=== PATIENT | female | born 1990 ===

== ENCOUNTER 2021-03-31 00:08 | Inpatient (IN) | payer OTHER ==
[2021-03-31] MEDS ORDERED: Misoprostol 25 MCG (1/4 of 100 MCG) Tab VAG PRN (00:31)
[2021-03-31] MEDS ORDERED: Terbutaline 1 MG/ML SDV SUBCUT PRN (00:31)
[2021-03-31] MEDS ORDERED: Sodium Chloride 0.9% 10 ML Syringe FLUSH PRN (00:31)
[2021-03-31] MEDS ORDERED: Misoprostol 200 MCG Tab PO PRN (00:31)
[2021-03-31] MEDS ORDERED: Water For Irrigation,Sterile 1,000 ML Container IRR PRN (00:31)
[2021-03-31] MEDS ORDERED: Butorphanol 1 MG/ML SDV IVPUSH PRN (00:31)
[2021-03-31] MEDS ORDERED: Methylergonovine 0.2 MG/1 ML Amp IM PRN (00:31)
[2021-03-31] MEDS ORDERED: Tranexamic Acid 1,000 MG in Sodium Chloride 0.9% 100 ML IV PRN (00:31)
[2021-03-31] MEDS ORDERED: Ondansetron 4 MG/2 ML SDV IVPUSH PRN (00:31)
[2021-03-31] MEDS ORDERED: Nalbuphine 10 MG/1 ML Vial IVPUSH PRN (00:31)
[2021-03-31] MEDS ORDERED: Sodium Chloride 0.9% 2.5 ML Syringe FLUSH PRN (00:31)
[2021-03-31] MEDS ORDERED: Carboprost Tromethamine 250 MCG/1 ML Amp IM PRN (00:31)
[2021-03-31] MEDS ORDERED: Sodium Chloride 0.9% 20 ML SDV IV PRN (00:31)
[2021-03-31] MEDS ORDERED: Lidocaine 1% 50 ML MDV INJECT PRN (00:31)
[2021-03-31] MEDS ORDERED: Oxytocin/0.9 % Sodium Chloride 30 UNIT/500 ML BAG IV SCH (00:45)
[2021-03-31] MEDS: Misoprostol 25 MCG (1/4 of 100 MCG) Tab VAG PRN ×3 (05:38→13:59)
--- NOTE | 2021-03-31 10:57 | PCM.PREANE ---
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 ) Cardiovascular: Other (Frequent PVC's. Pt states to seeing terminal press operator in 2012 who placed om medications yet withdrew medications due to hypotension. Has not seen terminal press operator since 2012. >4 mets) Gastrointestinal: Other (Obstetric Cholestasis with normal LFT) Neurological: No Symptoms Other: Reports: None - Physical Assessment NPO Status Date: 03/31/21 NPO Status Time: 10:00 Height: 1.7 m Weight: 94.801 kg ASA Class: 3 Mental Status: Alert & Oriented x3 Airway Class: Mallampati = 2 Dentition: Reports: Normal Dentition Thyro-Mental Finger Breadths: 3 Mouth Opening Finger Breadths: 3 ROM/Head Extension: Full Lungs: Clear to Auscultation, Normal Respiratory Effort Cardiovascular: Regular Rate, Regular Rhythm - Lab Values: Laboratory Last Values WBC 10.06 K/uL (4.0-11.0) 03/31/21 01:00 RBC 3.95 M/uL (4.30-5.90) L 03/31/21 01:00 Hgb 11.5 g/dL (12.0-16.0) L 03/31/21 01:00 Hct 34.7 % (36.0-46.0) L 03/31/21 01:00 MCV 87.8 fL (80.0-98.0) 03/31/21 01:00 MCH 29.1 pg (27.0-32.0) 03/31/21 01:00 MCHC 33.1 g/dL (31.0-37.0) 03/31/21 01:00 RDW Std Deviation 43.5 fl (28.0-62.0) 03/31/21 01:00 RDW Coeff of Jordan 14 % (11.0-15.0) 03/31/21 01:00 Plt Count 279 K/uL (150-400) 03/31/21 01:00 MPV 9.90 fL (7.40-12.00) 03/31/21 01:00 Neut % (Auto) 67.2 % (48.0-80.0) 03/31/21 01:00 Lymph % (Auto) 19.0 % (16.0-40.0) 03/31/21 01:00 Wilbarger % (Auto) 10.4 % (0.0-15.0) 03/31/21 01:00 Eos % (Auto) 3.1 % (0.0-7.0) 03/31/21 01:00 Baso % (Auto) 0.3 % (0.0-1.5) 03/31/21 01:00 Neut # (Auto) 6.8 K/uL (1.4-5.7) H 03/31/21 01:00 Lymph # (Auto) 1.9 K/uL (0.6-2.4) 03/31/21 01:00 Wilbarger # (Auto) 1.1 K/uL (0.0-0.8) H 03/31/21 01:00 Eos # (Auto) 0.3 K/uL (0.0-0.7) 03/31/21 01:00 Baso # (Auto) 0.0 K/uL (0.0-0.1) 03/31/21 01:00 SARS-CoV-2 RNA (GUILLERMINA) NEGATIVE (NEGATIVE) 03/31/21 01:05 Blood Type A POSITIVE 03/31/21 01:00 Antibody Screen NEGATIVE 03/31/21 01:00 - Allergies Allergies/Adverse Reactions: Allergies Allergy/AdvReac Type Severity Reaction Status Date / Time amoxicillin Allergy Severe Anaphylactic Verified 03/31/21 00:38 Shock Penicillins Allergy Severe Anaphylactic Verified 03/31/21 00:38 Shock erythromycin base Allergy Mild Rash Verified 03/31/21 00:38 Sulfa (Sulfonamide Allergy Mild Rash Verified 03/31/21 00:38 Antibiotics) - Blood Blood Available: Yes Product(s) Available: PRBC (Type and screen) - Anesthesia Plan Pre-Op Medication Ordered: None - Acknowledgements Anesthesia Type Planned: General Anesthesia, Spinal, Epidural Pt an Appropriate Candidate for the Planned Anesthesia: Yes Alternatives and Risks of Anesthesia Discussed w Pt/Guardian: Yes Pt/Guardian Understands and Agrees with Anesthesia Plan: Yes Additional Comments: Patients states to being active with no Chest Pain of SOB. 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: - Infectious Disease History Infectious Disease History: Reports: Chicken Pox - Past Surgical History Cardiovascular Surgical History: Reports: None GI Surgical History: Reports: Cholecystectomy Female Surgical History: Reports: LEEP - SUBSTANCE USE Tobacco Use Status *Q: Never Tobacco User Tobacco Use Within Last Twelve Months: No Recreational Drug Use History: No - HOME MEDS Home Medications: Home Meds Acetaminophen [Tylenol Extra Strength] 1 tab PO Q6H PRN 03/31/21 [History] Pnv 67/Iron Ps/Folate No.1/Dha [Vitafol Ultra Softgel] 1 tab PO DAILY 03/31/21 [History] ursodioL [Actigal] 1 cap PO TID 03/31/21 [History] - CURRENT (IN HOUSE) MEDS Current Meds: Current Medications Butorphanol Tartrate (Butorphanol 1 Mg/Ml Sdv) 1 mg IVPUSH Q1H PRN PRN Reason: Pain (severe 7-10) Carboprost Tromethamine (Carboprost Tromethamine 250 Mcg/1 Ml Amp) 250 mcg IM ASDIRECTED PRN PRN Reason: Post Hemorrhage Oxytocin/Sodium Chloride (Oxytocin 30 Unit In Ns 0.9% 500 Ml Premix) 30 unit in 500 mls @ 500 mls/hr IV TITRATE ESHA Tranexamic Acid 1,000 mg/ (Sodium Chloride) 110 mls @ 660 mls/hr IV ONETIME PRN PRN Reason: Bleeding Oxytocin/Sodium Chloride (Oxytocin 30 Unit In Ns 0.9% 500 Ml Premix) 30 unit in 500 mls @ 2 mls/hr IV TITRATE ESHA; Protocol Lactated Ringer's (Ringers, Lactated) 1,000 mls @ 150 mls/hr IV ASDIRECTED ESHA Lidocaine HCl (Lidocaine 1% 50 Ml Mdv) 50 ml INJECT ONETIME PRN PRN Reason: Laceration repair Methylergonovine Maleate (Methylergonovine 0.2 Mg/1 Ml Amp) 0.2 mg IM ASDIRE CTED PRN PRN Reason: Post Hemorrhage Misoprostol (Misoprostol 200 Mcg Tab) 200 mcg PO ONETIME PRN PRN Reason: Post Hemorrhage Misoprostol (Misoprostol 25 Mcg (1/4 Of 100 Mcg) Tab) 25 mcg VAG ONETIME PRN PRN Reason: Cervical Ripening Last Admin: 03/31/21 01:31 Dose: 25 mcg Documented by: Misoprostol (Misoprostol 25 Mcg (1/4 Of 100 Mcg) Tab) 25 mcg VAG Q4H PRN PRN Reason: Cervical Ripening Last Admin: 03/31/21 09:38 Dose: 25 mcg Documented by: Nalbuphine HCl (Nalbuphine 10 Mg/1 Ml Vial) 10 mg IVPUSH Q1H PRN PRN Reason: Pain (severe 7-10) Ondansetron HCl (Ondansetron 4 Mg/2 Ml Sdv) 4 mg IVPUSH Q4H PRN PRN Reason: Nausea/Vomiting Sodium Chloride (Sodium Chloride 0.9% 10 Ml Syringe) 10 ml FLUSH ASDIRECTED PRN PRN Reason: Keep Vein Open Sodium Chloride (Sodium Chloride 0.9% 2.5 Ml Syringe) 2.5 ml FLUSH ASDIRECTED PRN PRN Reason: Keep Vein Open Sodium Chloride (Sodium Chloride 0.9% 20 Ml Sdv) 10 ml IV ASDIRECTED PRN PRN Reason: IV Use Sterile Water (Water For Irrigation,Sterile 1,000 Ml Container) 1,000 ml IRR ASDIRECTED PRN PRN Reason: delivery Terbutaline Sulfate (Terbutaline 1 Mg/Ml Sdv) 0.25 mg SUBCUT ASDIRECTED PRN PRN Reason: Tacysystole
[2021-03-31] MEDS: Lactated Ringers 1,000 ML IV SCH ×3 (18:00→23:16)
[2021-03-31] MEDS: Oxytocin/0.9 % Sodium Chloride 30 UNIT/500 ML BAG IV SCH (18:19)
[2021-03-31] MEDS ORDERED: Ropivacaine HCl/PF 200 ML ONE (19:19)
--- NOTE | 2021-03-31 19:41 | PCM.SN.2 ---
- Pre-Procedure Checklist Attending Provider Aware: Yes Chart Reviewed: Yes Consent Signed: Yes Labs Reviewed: Yes VS/FHR Reviewed: Yes Patient Identification Confirmation Method: Reports: Chart Visual, Verbal Patient Pt an Appropriate Candidate for the Planned Anesthesia: Yes Alternatives and Risks of Anesthesia Discussed w Pt/Guardian: Yes - Procedure Procedure Start Date: 03/31/21 Procedure Start Time: 18:[address]: Reports: Blood Pressure, Heart Rate, SPO2 Functional IV: Yes Safety Measures: Reports: Patient Identified, Procedure Verified, Site Verified, Procedure Time Out Patient Position: Reports: Sitting Prep: Reports: Betadine x3 Local Anesthetic: Reports: Intradermal Wheal w Lidocaine 1% (3 ml) Regional Placement Level: Reports: L3-4 Needle: Reports: 17 g Touhy Approach: Reports: Midline Technique: Reports: MARTY Glass Syringe MARTY Needle Depth (cm): 7 cm Parasthesia: Reports: None Fluid Obtained: Reports: None Catheter Depth at Skin (cm): 16 cm Test Dose Time: 19:13 Test Dose Medication: Reports: Lidocaine 1.5% w Epinephrine 1:200,000 (5 ml) Test Dose Response: Reports: Negative Loading Dose Time: 19:22 (8 ml) Loading Dose Medication: Ropivicaine 0.2% Loading Dose Patient Position: 8 Continuous Infusion Start Time: 19:23 Continuous Infusion Medication: Ropivicaine 0.2% Continuous Infusion Rate: 16 Continuous Infusion PCS Bolus Option: 6 Continuous Infusion Lockout Dose (cc/hr): 15 (Min Lockout) Patient Position Post Placement: Reports: Supline/TANISHA Post-procedure Pain Level: 0 Level Achieved: T4 VS and FHR Monitored in Unit Post Placement: Yes Procedure End Date: 03/31/21 Procedure End Time: 19:54 Procedure Comment: Sterile technique maintained throughout procedure
--- NOTE | 2021-03-31 19:41 | PCM.POSTAN ---
POST ANESTHESIA ASSESSMENT - MENTAL STATUS Mental Status: Alert, Oriented - RESPIRATORY Respiratory Status: Respiratory Rate WNL, Airway Patent, O2 Saturation Stable - CARDIOVASCULAR CV Status: Pulse Rate WNL, Blood Pressure Stable - GASTROINTESTINAL GI Status: No Symptoms - POST OP HYDRATION Hydration Status: Adequate & Stable
[2021-03-31] MEDS ORDERED: Ropivacaine/PF 400 MG/200 ML PCA EPIDUR SCH (19:45)
[2021-04-01] MEDS ORDERED: hydrOXYzine HCl 25 MG Tab PO STA (01:07)
[2021-04-01] MEDS: Oxytocin/0.9 % Sodium Chloride 30 UNIT/500 ML BAG IV SCH (05:42)
[2021-04-01] MEDS: Lactated Ringers 1,000 ML IV SCH ×3 (05:53→14:36)
[2021-04-01] MEDS: ePHEDrine 50 MG/ML SDV IVPUSH PRN ×2 (06:47→06:56)
[2021-04-01] MEDS ORDERED: Ropivacaine HCl/PF 200 ML ONE (09:16)
[2021-04-01] MEDS ORDERED: Acetaminophen 500 MG Tab PO ONE (09:30)
[2021-04-01] MEDS ORDERED: Lidocaine 2% with EPINEPHrine 1:200,000 20 ML SDV ONE (11:55)
[2021-04-01] MEDS ORDERED: Morphine PF 10 MG/10 ML SDV ONE (11:55)
--- NOTE | 2021-04-01 11:55 | PCM.DEL ---
L & D Note - General Info Date of Service: 04/01/21 Mother's Due Date: 04/17/21 - Delivery Note Labor: Augmented by Oxytocin Cervical Ripening Method: Misoprostil Delivery Outcome: Livebirth Delivery Method: Spontaneous Vaginal Delivery-Single Presentation: Left Occiput Anterior (VAISHALI) Nuchal Cord: None Anesthesia Type: Epidural Amniotic Fluid Description: Bloody Episiotomy Type: None Laceration: 2nd Degree Suture type: Vicryl Suture size: 2-0 Placenta: Intact, Spontaneous Cord: 3 Vessels Estimated Blood Loss: 500 Provider: Wilian Lockhart Score 1 min: 7 Score 5 min: 9 Post Delivery Events: Other (see below) (cervical laceration) Delivery Comments (Free Text/Narrative):: Uneventful spontaneous vaginal delivery. Cord blood gases were obtained after umbilical cord was clamped and cut. Placenta expressed intake, 3-vessel cord noted. Inspection of the vaginal cardoza and perineum performed and a small 2nd degree perineal laceration noted. Laceration repaired in the usual fashion. Uterine fundus noted to be firm and below the umbilicus. Persistent vaginal oozing noted, examination of the cervix was performed and cervical laceration noted at the 9 o'clock position. Recommended moving to the OR for better visualization and repair of the cervical laceration. Risks of the procedure reviewed including in infection, bleeding with need for blood transfusion/hysterectomy, injury to surrounding structures with need for additional procedures and remote risk of . Questions elicited and answered. See additional documentation for operative note. Dictation #[id number] - General Info Date of Service: 04/01/21 - Patient Data Weight - Most Recent: 209 lb I&O - Last 24 Hours: Intake & Output 03/31/21 04/01/21 04/01/21 22:59 06:59 14:59 Intake Total 1000 2000 Output Total 2200 Balance 1000 -200 Med Orders - Current: Current Medications Butorphanol Tartrate (Butorphanol 1 Mg/Ml Sdv) 1 mg IVPUSH Q1H PRN PRN Reason: Pain (severe 7-10) Carboprost Tromethamine (Carboprost Tromethamine 250 Mcg/1 Ml Amp) 250 mcg IM ASDIRECTED PRN PRN Reason: Post Hemorrhage Ephedrine Sulfate (Ephedrine 50 Mg/Ml Sdv) 10 mg IVPUSH Q1M PRN PRN Reason: Hypotension Last Admin: 04/01/21 06:56 Dose: 10 mg Documented by: Oxytocin/Sodium Chloride (Oxytocin 30 Unit In Ns 0.9% 500 Ml Premix) 30 unit in 500 mls @ 500 mls/hr IV TITRATE ESHA Tranexamic Acid 1,000 mg/ (Sodium Chloride) 110 mls @ 660 mls/hr IV ONETIME PRN PRN Reason: Bleeding Oxytocin/Sodium Chloride (Oxytocin 30 Unit In Ns 0.9% 500 Ml Premix) 30 unit in 500 mls @ 2 mls/hr IV TITRATE ESHA; Protocol Last Titration: 04/01/21 10:01 Dose: 8 munits/min, 8 mls/hr Documented by: Lactated Ringer's (Ringers, Lactated) 1,000 mls @ 150 mls/hr IV ASDIRECTED ESHA Last Infusion: 04/01/21 07:03 Dose: 150 mls/hr Documented by: Lidocaine HCl (Lidocaine 1% 50 Ml Mdv) 50 ml INJECT ONETIME PRN PRN Reason: Laceration repair Methylergonovine Maleate (Methylergonovine 0.2 Mg/1 Ml Amp) 0.2 mg IM ASDIRECTED PRN PRN Reason: Post Hemorrhage Miscellaneous Medication (Phenylephrine Hcl In 0.9% Nacl 1 Mg/10 Ml Syringe) 0.1 mg IVPUSH Q1M PRN PRN Reason: Hypotension Misoprostol (Misoprostol 200 Mcg Tab) 200 mcg PO ONETIME PRN PRN Reason: Post Hemorrhage Misoprostol (Misoprostol 25 Mcg (1/4 Of 100 Mcg) Tab) 25 mcg VAG ONETIME PRN PRN Reason: Cervical Ripening Last Admin: 03/31/21 01:31 Dose: 25 mcg Documented by: Misoprostol (Misoprostol 25 Mcg (1/4 Of 100 Mcg) Tab) 25 mcg VAG Q4H PRN PRN Reason: Cervical Ripening Last Admin: 03/31/21 13:59 Dose: 25 mcg Documented by: Nalbuphine HCl (Nalbuphine 10 Mg/1 Ml Vial) 10 mg IVPUSH Q1H PRN PRN Reason: Pain (severe 7-10) Ondansetron HCl (Ondansetron 4 Mg/2 Ml Sdv) 4 mg IVPUSH Q4H PRN PRN Reason: Nausea/Vomiting Ropivacaine (Ropivacaine/Pf 400 Mg/200 Ml Export Documents Clerk) 400 mg EPIDUR ASDIRECTED ESHA Last Admin: 04/01/21 09:19 Dose: 400 mg Documented by: Sodium Chloride (Sodium Chloride 0.9% 10 Ml Syringe) 10 ml FLUSH ASDIRECTED PRN PRN Reason: Keep Vein Open Sodium Chloride (Sodium Chloride 0.9% 2.5 Ml Syringe) 2.5 ml FLUSH ASDIRECTED PRN PRN Reason: Keep Vein Open Sodium Chloride (Sodium Chloride 0.9% 20 Ml Sdv) 10 ml IV ASDIRECTED PRN PRN Reason: IV Use Sterile Water (Water For Irrigation,Sterile 1,000 Ml Container) 1,000 ml IRR ASDIRECTED PRN PRN Reason: delivery Terbutaline Sulfate (Terbutaline 1 Mg/Ml Sdv) 0.25 mg SUBCUT ASDIRECTED PRN PRN Reason: Tacysystole Discontinued Medications Acetaminophen (Acetaminophen 500 Mg Tab) 1,000 mg PO ONETIME ONE Stop: 04/01/21 09:31 Last Admin: 04/01/21 09:50 Dose: 1,000 mg Documented by: Hydroxyzine HCl (Hydroxyzine Hcl 25 Mg Tab) 50 mg PO Q6H STA Stop: 04/01/21 01:08 Last Admin: 04/01/21 01:45 Dose: Not Given Documented by: Ropivacaine (Naropin 0.2%) Confirm Administered Dose 200 mls @ as directed .ROUTE .STK-MED ONE Stop: 03/31/21 19:20 Last Admin: 04/01/21 02:39 Dose: Not Given Documented by: Ropivacaine (Naropin 0.2%) Confirm Administered Dose 200 mls @ as directed .ROUTE .STK-MED ONE Stop: 04/01/21 09:17 - Problem List Review Problem List Initiated/Reviewed/Updated: Yes - My Orders Last 24 Hours: My Active Orders 04/01/21 04:08 Communication Order [RC] ROUTINE 04/01/21 11:45 BLOOD BANK HOLD SPECIMEN [BBK] Stat CBC W/O DIFF,HEMOGRAM [HEME] Routine FIBRINOGEN [COAG] Routine INR,PT,PROTHROMBIN TIME [COAG] Routine PTT,PARTIAL THROMBOPLSTIN TIME [COAG] Routine
[2021-04-01] MEDS ORDERED: Clindamycin Phosphate in D5W 900 MG in Premix Bag 1 BAG IV ONE ×2 (12:02)
[2021-04-01] MEDS ORDERED: oxyCODONE 5 MG Tab PO PRN (13:34)
[2021-04-01] MEDS ORDERED: Acetaminophen 500 MG Tab PO PRN (13:34)
[2021-04-01] MEDS ORDERED: Witch Hazel Medicated Pads 40/Jar TOP PRN (13:34)
[2021-04-01] MEDS ORDERED: Benzocaine/Menthol 20%-0.5% Spray 78 GM Cannister TOP PRN (13:34)
[2021-04-01] MEDS ORDERED: Lanolin 100% Cream 7 GM Tube TOP PRN (13:34)
[2021-04-01] MEDS ORDERED: Ibuprofen 400 MG Tab PO PRN (13:34)
[2021-04-01] MEDS ORDERED: Docusate Sodium 100 MG Cap PO PRN (13:34)
[2021-04-01] MEDS ORDERED: Bisacodyl 10 MG Supp RECTAL PRN (13:34)
[2021-04-01] MEDS ORDERED: Famotidine 20 MG/2 ML SDV IVPUSH ONE (13:38)
--- NOTE | 2021-04-01 13:40 | PCM.OPNOTE ---
- General Post-Op/Procedure Note Date of Surgery/Procedure: 04/01/21 Operative Procedure(s): Cervical laceration repair Findings: cervix dilated to 10cm. Bilateral cervical lacerations noted at 3 o'clock and 9 o'clock. Repaired 2nd degree perineal laceration. Pre Op Diagnosis: 1. cervical laceration. 2. History of LEEP. 3. hemorrhage Post-Op Diagnosis: 1. cervical laceration. 2. History of LEEP. 3. hemorrhage Anesthesia Technique: Epidural Primary Surgeon: Kenia Nair Anesthesia Provider: Elliot Childress Pathology: None Fluid Replacement, Intraop: 800 Output, Urine Amount: 400 (clear urine at end of procedure) EBL in mLs: 500 (1100cc total following spontaneous vaginal delivery) Complications: hemorrhage due to bilateral cervical laceration Condition: Good Free Text/Narrative:: Intake & Output 03/31/21 04/01/21 04/01/21 22:59 06:59 14:59 Intake Total 1000 2000 1500 Output Total 2200 Balance 1000 -200 1500 Dictation #[id number]
--- NOTE | 2021-04-01 13:56 | PCM48HPAN ---
Post Anesthesia Note - EVALUATION WITHIN 48HRS OF ANESTHETIC Vital Signs in Normal Range: Yes Patient Participated in Evaluation: Yes Respiratory Function Stable: Yes Airway Patent: Yes Cardiovascular Function Stable: Yes Hydration Status Stable: Yes Pain Control Satisfactory: Yes Nausea and Vomiting Control Satisfactory: Yes Mental Status Recovered: Yes - COMMENTS/OBSERVATIONS Free Text/Narrative:: Catheter removed with tip intact
[2021-04-01] MEDS ORDERED: diphenhydrAMINE 50 MG/ML SDV IVPUSH ONE ×2 (16:13→17:38)
--- NOTE | 2021-04-01 22:13 | OR ---
SURGEON: TITUS NAIR MD DATE OF PROCEDURE: 04/01/2021 PREOPERATIVE DIAGNOSES: 1. cervical laceration. 2. History of LEEP procedure. 3. hemorrhage. POSTOPERATIVE DIAGNOSES: 1. cervical laceration. 2. History of LEEP procedure. 3. hemorrhage. PROCEDURE PERFORMED: Cervical laceration repair. PRIMARY SURGEON: Titus Nair MD RETAIL CLIENT SOLUTIONS CONSULTANT: None. ANESTHESIA: Epidural. COMPLICATIONS: hemorrhage due to bilateral cervical laceration. ESTIMATED BLOOD LOSS: 500 mL during the procedure. Total of 1100 mL blood loss following spontaneous vaginal delivery. IV FLUIDS: 100 mL of crystalloid. URINE OUTPUT: 400 mL of clear urine at the end of the procedure. FINDINGS: cervix dilated to 10 cm. Bilateral cervical lacerations noted at 3 o'clock and 9 o'clock repaired. Repaired second-degree perineal laceration. PATHOLOGY: None. INDICATIONS FOR PROCEDURE: Patient is a 30-year-old, 3, para 2 female, who initially presented to Labor and Delivery for induction of labor at 37 weeks 5 days due to cholestasis. The patient has a history of a LEEP procedure with cervical scarring noted. The patient delivered by spontaneous vaginal delivery at 10:51 on 04/01/2021. After the delivery, inspection of the perineum was then performed. A small second- degree perineal laceration was noted and repaired with 2-0 Vicryl in the usual fashion. Inspection of the cervix was attempted due to continued vaginal bleeding despite firm uterine fundus. However, due to limited visualization within the delivery room and continued vaginal bleeding, concern for cervical laceration was noted. The vagina was then packed and the patient was then taken to the operating room. Prior to arrival in the operating room, the patient had a 2nd IV site started and a bleeding panel was obtained along with 2 units of blood typed and crossed. DESCRIPTION OF PROCEDURE: Once the patient arrived to the operating room, she was then prepped and draped in the dorsal lithotomy position. After adequate anesthesia was noted per her epidural, a weighted speculum was then inserted into the vagina along with 2 right angle retractors. Findings noted as above. The anterior-posterior cervix was then grasped with ring forceps near the 9 o'clock position and the 9 o'clock laceration was repaired in a running locked fashion with 2-0 Vicryl. Due to edematous cervical tissue, continued bleeding was noted, and 2-0 chromic was used to achieve hemostasis. Additional procedure was carried out at the 3 o'clock position; using 2-0 chromic to reapproximate the tissue in a running locked fashion. Inspection was then again performed and oozing noted just proximal to the opening of the cervix on the posterior side. A figure-of- eight suture of 2-0 chromic was used to achieve hemostasis. Similar oozing was noted on the anterior side at similar location. Again, 2-0 chromic was used to place a [id number] suture to achieve hemostasis. Inspection of the cervix and vaginal cardoza was then again performed. Bleeding was scant. Uterine fundus remained firm during the procedure. All instruments were then removed from the vagina. Sponge, lap, and needle count were correct x2. Patient received prophylactic antibiotics prior to the procedure. She was taken back to room for recovery in stable condition. LALITHA JOHNSON /[id number] JONELLE
--- NOTE | 2021-04-01 22:17 | PCM.SN.2 ---
- Free Text/Narrative Note: Called by patients nurse to examine due to complaints of leg numbness. During assessment, patient states that her legs had been "pushed to her chest" during labor. Additionally, patient had subsequent cervical suture in OR in which stirrups had been used. Patient states that her numbness is on the lateral aspect of her right lower leg and plantar foot with tingling sensation on the dorsal aspect of her foot. During assessment she is able to have full ROM with leg and ankle. She is able to bear wait on her right leg but states that the numbness on the plantar aspect of the foot does cause her concern for walking. Patients left leg is unaffected. Dr. Nair notified of these findings and it was requested that she consult neurology regarding common peroneal or sciatic nerve injury. Dr. Nair stated she would ascertain when neurologist was available and consider consultation for review and assessment with treatment. Patient was instructed to alert nurse to the need for immediate assessment should pain develop, numbness worsen, or leg weakness.
--- NOTE | 2021-04-01 22:19 | OR ---
SURGEON: KENIA NAIR MD DATE OF PROCEDURE: 04/01/2021 PREOPERATIVE DIAGNOSES: 1. Term intrauterine gestation at 37 weeks 5 days. 2. Cholestasis of . 3. History of loop electrosurgical excision procedure. POSTOPERATIVE DIAGNOSES: 1. Term intrauterine gestation at 37 weeks 5 days. 2. Cholestasis of . 3. History of loop electrosurgical excision procedure. PROCEDURES PERFORMED: 1. Normal spontaneous vaginal delivery. 2. Repair of second-degree perineal laceration. PRIMARY SURGEON: Kenia Nair MD. ANESTHESIOLOGIST: Elliot Childress CRNA. ANESTHESIA: Epidural. FINDINGS: Viable male , score of 7 and 9, weight of 8 pounds 4 ounces. Second- degree perineal laceration. hemorrhage due to cervical laceration. ESTIMATED BLOOD LOSS: At the time of delivery, 500 mL. INDICATION FOR PROCEDURE: The patient is a 30-year-old, 3, para 2, who presented to Labor and Delivery in the television station manager of 03/31/2021, at 37 weeks 4 days for induction of labor due to cholestasis of . Her has been also complicated by history of LEEP procedure. She received 4 doses of vaginal Cytotec with minimal cervical change. She received an epidural and Pitocin for continued induction of labor. In the television station manager of 04/01/2021, cervical exam was performed and effacement had been noted of the cervix; however, scar tissue noted with fingertip dilation of the cervix. The scar tissue was gently disrupted and the cervix then proceeded to dilate to 5 cm. Labor progressed spontaneously and artificial rupture of membranes was performed with small amount of blood-tinged fluid. At approximately 10:35, I was notified that the patient was completely dilated and feeling the urge to push. DESCRIPTION OF PROCEDURE: Upon my arrival to the room, the patient was placed into the dorsal lithotomy position. She pushed with contractions for approximately 10 minutes with good descent. head delivered in occiput anterior position, restitute LOT. Anterior shoulder delivered easily. No nuchal cord was noted. Posterior shoulder and remaining body were then delivered. The baby was then placed on the maternal abdomen, evaluated by the awaiting nursing staff. After approximately 2 minutes, the umbilical cord was no longer pulsating. The vocal cord was then clamped and cut. Arterial, venous, and cord blood gases were then obtained. Arterial gases with minimal output. The placenta then was expressed intact. Uterine fundus noted to be firm and below the umbilicus. Inspection of the perineum was then performed and a second-degree perineal laceration was noted, which was repaired in the usual fashion with 2-0 Vicryl. Continued oozing was noted from the vagina. Inspection was then performed of the vaginal cardoza and attempt to visualize the cervix; however, due to poor visualization in the delivery room and concern for cervical laceration due to history of LEEP procedure, the patient was then taken to the operating room for further evaluation under anesthesia and repair of cervical laceration. Please see additional note for description of cervical laceration repair. LALITHA / ALEX /[id number] MTDD
--- NOTE | 2021-04-02 08:25 | PCM.PNPP ---
- General Info Date of Service: 04/02/21 Admission Dx/Problem (Free Text): Subjective Update: Ambulating about room during rounds. Reports right lower extremity numbness has much improved, has a "pins and needles" sensation to the sole of her right foot, otherwise the numbness has resolved. Pain well controlled. Tolerating regular diet. Voiding independently. , going well per patient. Denies fever/chills, lightheadedness, dizziness or headaches. - General Info Date of Service: 04/02/21 - Patient Data Vital Signs - Most Recent: Last Vital Signs Temp 97.9 F 04/02/21 03:35 Pulse 89 04/02/21 03:35 Resp 18 04/02/21 03:35 BP 110/69 04/02/21 03:35 Pulse Ox 96 04/02/21 03:35 Weight - Most Recent: 209 lb I&O - Last 24 Hours: Intake & Output 04/01/21 04/02/21 04/02/21 22:59 06:59 14:59 Output Total 1700 Balance -1700 Lab Results - Last 24 Hours: Laboratory Results - last 24 hr 03/31/21 04/01/21 04/01/21 Range/Units 01:00 11:59 11:59 WBC 19.13 H (4.0-11.0) K/uL RBC 3.69 L (4.30-5.90) M/uL Hgb 10.8 L (12.0-16.0) g/dL Hct 32.2 L (36.0-46.0) % MCV 87.3 (80.0-98.0) fL MCH 29.3 (27.0-32.0) pg MCHC 33.5 (31.0-37.0) g/dL RDW Std Deviation 45.6 (28.0-62.0) fl RDW Coeff of [place] 14 (11.0-15.0) % Plt Count 261 (150-400) K/uL MPV 10.00 (7.40-12.00) fL Nucleated RBC % 0.0 /100WBC Nucleated RBCs # 0 K/uL INR 1.00 APTT 25.0 (18.6-31.3) SEC Fibrinogen 370 (215-411) mg/dL Blood Type A POSITIVE Antibody Screen NEGATIVE Crossmatch See Detail 04/01/21 04/02/21 Range/Units 20:06 05:40 WBC (4.0-11.0) K/uL RBC (4.30-5.90) M/uL Hgb 10.0 L 9.2 L (12.0-16.0) g/dL Hct 30.1 L 27.5 L (36.0-46.0) % MCV (80.0-98.0) fL MCH (27.0-32.0) pg MCHC (31.0-37.0) g/dL RDW Std Deviation (28.0-62.0) fl RDW Coeff of Jordan (11.0-15.0) % Plt Count (150-400) K/uL MPV (7.40-12.00) fL Nucleated RBC % /100WBC Nucleated RBCs # K/uL INR APTT (18.6-31.3) SEC Fibrinogen (215-411) mg/dL Blood Type Antibody Screen Crossmatch Med Orders - Current: Current Medications Acetaminophen (Acetaminophen 500 Mg Tab) 500 mg PO Q4H PRN PRN Reason: Pain (mild 1-3) Acetaminophen (Acetaminophen 500 Mg Tab) 1,000 mg PO Q4H PRN PRN Reason: Pain (mild 1-3) Benzocaine/Menthol (Benzocaine/Menthol 20%-0.5% [place] 78 Gm Cannister) 78 gm TOP ASDIRECTED PRN PRN Reason: Perineal Comfort Measure Last Admin: 04/01/21 16:46 Dose: 1 container Documented by: Bisacodyl (Bisacodyl 10 Mg Supp) 10 mg RECTAL ONETIME PRN PRN Reason: Constipation Butorphanol Tartrate (Butorphanol 1 Mg/Ml Sdv) 1 mg IVPUSH Q1H PRN PRN Reason: Pain (severe 7-10) Carboprost Tromethamine (Carboprost Tromethamine 250 Mcg/1 Ml Amp) 250 mcg IM ASDIRECTED PRN PRN Reason: Post Hemorrhage Docusate Sodium (Docusate Sodium 100 Mg Cap) 100 mg PO Q12H PRN PRN Reason: Constipation Last Admin: 04/01/21 21:07 Dose: 100 mg Documented by: Emollient Ointment (Lanolin 100% Cream 7 Gm Tube) 0 gm TOP ASDIRECTED PRN PRN Reason: Sore Nipples Last Admin: 04/01/21 16:47 Dose: 1 applic Documented by: Ephedrine Sulfate (Ephedrine 50 Mg/Ml Sdv) 10 mg IVPUSH Q1M PRN PRN Reason: Hypotension Last Admin: 04/01/21 06:56 Dose: 10 mg Documented by: Oxytocin/Sodium Chloride (Oxytocin 30 Unit In Ns 0.9% 500 Ml Premix) 30 unit in 500 mls @ 500 mls/hr IV TITRATE [facility] Last Admin: 04/01/21 11:21 Dose: 500 mls/hr Documented by: Tranexamic Acid 1,000 mg/ (Sodium Chloride) 110 mls @ 660 mls/hr IV ONETIME PRN PRN Reason: Bleeding Oxytocin/Sodium Chloride (Oxytocin 30 Unit In Ns 0.9% 500 Ml Premix) 30 unit in 500 mls @ 2 mls/hr IV TITRATE [facility]; Protocol Last Titration: 04/01/21 10:51 Dose: 999 munits/min, 999 mls/hr Documented by: Lactated Ringer's (Ringers, Lactated) 1,000 mls @ 150 mls/hr IV ASDIRECTED [facility] Last Admin: 04/01/21 14:36 Dose: 150 mls/hr Documented by: Ibuprofen (Ibuprofen 400 Mg Tab) 400 mg PO Q4H PRN PRN Reason: Pain (mild 1-3) Ibuprofen (Ibuprofen 800 Mg Tab) 800 mg PO Q6H PRN PRN Reason: Cramping Lidocaine HCl (Lidocaine 1% 50 Ml Mdv) 50 ml INJECT ONETIME PRN PRN Reason: Laceration repair Methylergonovine Maleate (Methylergonovine 0.2 Mg/1 Ml Amp) 0.2 mg IM ASDIRECTED PRN PRN Reason: Post Hemorrhage Miscellaneous Medication (Phenylephrine Hcl In 0.9% Nacl 1 Mg/10 Ml Syringe) 0.1 mg IVPUSH Q1M PRN PRN Reason: Hypotension Misoprostol (Misoprostol 200 Mcg Tab) 200 mcg PO ONETIME PRN PRN Reason: Post Hemorrhage Misoprostol (Misoprostol 25 Mcg (1/4 Of 100 Mcg) Tab) 25 mcg VAG ONETIME PRN PRN Reason: Cervical Ripening Last Admin: 03/31/21 01:31 Dose: 25 mcg Documented by: Misoprostol (Misoprostol 25 Mcg (1/4 Of 100 Mcg) Tab) 25 mcg VAG Q4H PRN PRN Reason: Cervical Ripening Last Admin: 03/31/21 13:59 Dose: 25 mcg Documented by: Nalbuphine HCl (Nalbuphine 10 Mg/1 Ml Vial) 10 mg IVPUSH Q1H PRN PRN Reason: Pain (severe 7-10) Ondansetron HCl (Ondansetron 4 Mg/2 Ml Sdv) 4 mg IVPUSH Q4H PRN PRN Reason: Nausea/Vomiting Last Admin: 04/01/21 16:42 Dose: 4 mg Documented by: Oxycodone HCl (Oxycodone 5 Mg Tab) 5 mg PO Q2H PRN PRN Reason: Pain (severe 7-10) Ropivacaine (Ropivacaine/Pf 400 Mg/200 Ml Die Sizer) 400 mg EPIDUR ASDIRECTED [facility] Last Admin: 04/01/21 09:19 Dose: 400 mg Documented by: Sodium Chloride (Sodium Chloride 0.9% 10 Ml Syringe) 10 ml FLUSH ASDIRECTED PRN PRN Reason: Keep Vein Open Sodium Chloride (Sodium Chloride 0.9% 2.5 Ml Syringe) 2.5 ml FLUSH ASDIRECTED PRN PRN Reason: Keep Vein Open Sodium Chloride (Sodium Chloride 0.9% 20 Ml Sdv) 10 ml IV ASDIRECTED PRN PRN Reason: IV Use Sterile Water (Water For Irrigation,Sterile 1,000 Ml Container) 1,000 ml IRR ASDIRECTED PRN PRN Reason: delivery Terbutaline Sulfate (Terbutaline 1 Mg/Ml Sdv) 0.25 mg SUBCUT ASDIRECTED PRN PRN Reason: Tacysystole Witch Mary (Witch Mary Medicated Pads 40/Jar) 1 pad TOP ASDIRECTED PRN PRN Reason: comfort care Last Admin: 04/01/21 16:46 Dose: 1 container Documented by: Discontinued Medications Acetaminophen (Acetaminophen 500 Mg Tab) 1,000 mg PO ONETIME ONE Stop: 04/01/21 09:31 Last Admin: 04/01/21 09:50 Dose: 1,000 mg Documented by: Diphenhydramine HCl (Diphenhydramine 50 Mg/Ml Sdv) 12.5 mg IVPUSH ONETIME ONE Stop: 04/01/21 16:14 Last Admin: 04/01/21 16:44 Dose: 12.5 mg Documented by: Diphenhydramine HCl (Diphenhydramine 50 Mg/Ml Sdv) 12.5 mg IVPUSH ONETIME ONE Stop: 04/01/21 17:39 Last Admin: 04/01/21 18:08 Dose: 12.5 mg Documented by: Famotidine (Famotidine 20 Mg/2 Ml Sdv) 20 mg IVPUSH ONETIME ONE Stop: 04/01/21 13:39 Last Admin: 04/01/21 14:37 Dose: 20 mg Documented by: Hydroxyzine HCl (Hydroxyzine Hcl 25 Mg Tab) 50 mg PO Q6H STA Stop: 04/01/21 01:08 Last Admin: 04/01/21 01:45 Dose: Not Given Documented by: Ropivacaine (Naropin 0.2%) Confirm Administered Dose 200 mls @ as directed .ROUTE .STK-MED ONE Stop: 03/31/21 19:20 Last Admin: 04/01/21 02:39 Dose: Not Given Documented by: Ropivacaine (Naropin 0.2%) Confirm Administered Dose 200 mls @ as directed .ROUTE .STK-MED ONE Stop: 04/01/21 09:17 Clindamycin Phosphate 900 mg/ (Premix) 50 mls @ 100 mls/hr IV ONETIME ONE Stop: 04/01/21 12:31 Last Admin: 04/01/21 12:15 Dose: 100 mls/hr Documented by: Lidocaine/Epinephrine (Lidocaine 2% With Epinephrine 1:200,000 20 Ml Sdv) Confirm Administered Dose 20 ml .ROUTE .STK-MED ONE Stop: 04/01/21 11:56 Morphine Sulfate (Morphine Pf 10 Mg/10 Ml Sdv) Confirm Administered Dose 10 mg .ROUTE .STK-MED ONE Stop: 04/01/21 11:56 - Infant Interaction Infant Disposition, : [place] in Room with Family Interaction: Holding Feeding: Breastfed ; Nursed Well Support Person: - Recovery Exam Fundal Tone: Firm Fundal Level: 2 Fingerbreadths Below Umbilicus Fundal Placement: Midline Lochia Amount: Scant Lochia Color: Rubra/Red Perineum Description: Intact, Minimal Bruising/Swelling Other Perinuem Description: repaired first degree perineal laceration cervical laceration Episiotomy/Laceration: Approximated Bladder Status: Voiding Urinary Elimination: Voided - Exam General: Alert Lungs: Normal Respiratory Effort Cardiovascular: Regular Rate GI/Abdominal Exam: Soft, Non-Tender Extremities: Normal Inspection, Normal Range of Motion, Non-Tender, No Pedal Edema Skin: Warm, Dry, Intact Neurological: No New Focal Deficit Psy/Mental Status: Normal Mood - Problem List Review Problem List Initiated/Reviewed/Updated: Yes - My Orders Last 24 Hours: My Active Orders 04/01/21 11:45 BLOOD BANK HOLD SPECIMEN [BBK] Stat 04/01/21 11:48 RED BLOOD CELLS LP [BBK] Stat 04/01/21 13:34 Patient Status [ADT] Routine May Shower [RC] ASDIRECTED Up ad Jesi [RC] ASDIRECTED Vital Signs [RC] PER UNIT ROUTINE Acetaminophen [Tylenol Extra Strength] 1,000 mg PO Q4H PRN Acetaminophen [Tylenol Extra Strength] 500 mg PO Q4H PRN Benzocaine/Menthol [Dermoplast Pain Relief 20%-0.5% [place]] 78 gm TOP ASDIRECTED PRN Docusate Sodium [Colace] 100 mg PO Q12H PRN Ibuprofen [Motrin] 400 mg PO Q4H PRN Ibuprofen [Motrin] 800 mg PO Q6H PRN Lanolin [Lansinoh HPA] See Dose Instructions TOP ASDIRECTED PRN bisacodyL [Dulcolax] 10 mg RECTAL ONETIME PRN oxyCODONE 5 mg PO Q2H PRN witch Mary [Tucks] 1 pad TOP ASDIRECTED PRN Assess Lochia [WOMSER] Per Unit Routine Assess Uterine Involution [WOMSER] Per Unit Routine Peripheral IV Discontinue [OM.PC] Routine 04/02/21 08:19 HEPATITIS C ANTIBODY [CHEM] Urgent - Assessment Assessment:: 30 year old female PPD1 s/p with hemorrhage due to cervical laceration - Plan Plan:: Routine cares * Rh positive, rubella immune, GBS negative * Regular diet as tolerated * PO pain medications ordered PRN * Encourage ambulation and fluid intake * , nursing assistance PRN Anemia due to hemorrhage * Hgb 11.5 > 9.2 * Asymptomatic * Bleeding stable * PO iron ordered BID with meals Lower extremity numbness * Improved over the last 24 hours * Will consult on-call neurologist for further evaluation Dispo: stable. Anticipate discharge tomorrow pending maternal/infant status.
--- NOTE | 2021-04-02 13:44 | PCM.SN.2 ---
- Free Text/Narrative Note: Patient states that numbness of eight leg has resolved yet some numbness of foot remains. Patient states that Dr. Nair has discussed her case with neurologist and she may follow up as outpatient basis.
[2021-04-02] MEDS: Ferrous Sulfate 325 MG Tab PO SCH (18:03)
[2021-04-02] MEDS: Acetaminophen 500 MG Tab PO PRN (20:24)
[2021-04-03] MEDS: Ibuprofen 800 MG Tab PO PRN ×2 (03:08→09:05)
[2021-04-03] MEDS: Ferrous Sulfate 325 MG Tab PO SCH (08:04)
[2021-04-03] MEDS: Acetaminophen 500 MG Tab PO PRN (08:04)
--- NOTE | 2021-04-03 09:25 | PCM.PNPP ---
- General Info Date of Service: 04/03/21 Functional Status: Reports: Pain Controlled, Tolerating Diet, Ambulating, Urinating - Review of Systems General: Reports: No Symptoms HEENT: Reports: No Symptoms Pulmonary: Reports: No Symptoms Cardiovascular: Reports: No Symptoms Gastrointestinal: Reports: No Symptoms Genitourinary: Reports: No Symptoms Musculoskeletal: Reports: No Symptoms Skin: Reports: No Symptoms Neurological: Reports: No Symptoms Psychiatric: Reports: No Symptoms - Patient Data Vital Signs - Most Recent: Last Vital Signs Temp 36.8 C 04/03/21 08:00 Pulse 86 04/03/21 08:00 Resp 18 04/03/21 08:00 BP 115/63 04/03/21 08:00 Pulse Ox 96 04/03/21 08:00 Weight - Most Recent: 209 lb Med Orders - Current: Current Medications Acetaminophen (Acetaminophen 500 Mg Tab) 500 mg PO Q4H PRN PRN Reason: Pain (mild 1-3) Acetaminophen (Acetaminophen 500 Mg Tab) 1,000 mg PO Q4H PRN PRN Reason: Pain (mild 1-3) Last Admin: 04/03/21 08:04 Dose: 1,000 mg Documented by: Benzocaine/Menthol (Benzocaine/Menthol 20%-0.5% [place] 78 Gm Cannister) 78 gm TOP ASDIRECTED PRN PRN Reason: Perineal Comfort Measure Last Admin: 04/01/21 16:46 Dose: 1 container Documented by: Bisacodyl (Bisacodyl 10 Mg Supp) 10 mg RECTAL ONETIME PRN PRN Reason: Constipation Butorphanol Tartrate (Butorphanol 1 Mg/Ml Sdv) 1 mg IVPUSH Q1H PRN PRN Reason: Pain (severe 7-10) Carboprost Tromethamine (Carboprost Tromethamine 250 Mcg/1 Ml Amp) 250 mcg IM ASDIRECTED PRN PRN Reason: Post Hemorrhage Docusate Sodium (Docusate Sodium 100 Mg Cap) 100 mg PO Q12H PRN PRN Reason: Constipation Last Admin: 04/01/21 21:07 Dose: 100 mg Documented by: Emollient Ointment (Lanolin 100% Cream 7 Gm Tube) 0 gm TOP ASDIRECTED PRN PRN Reason: Sore Nipples Last Admin: 04/01/21 16:47 Dose: 1 applic Documented by: Ephedrine Sulfate (Ephedrine 50 Mg/Ml Sdv) 10 mg IVPUSH Q1M PRN PRN Reason: Hypotension Last Admin: 04/01/21 06:56 Dose: 10 mg Documented by: Ferrous Sulfate (Ferrous Sulfate 325 Mg Tab) 325 mg PO BIDMEALS [facility] Last Admin: 04/03/21 08:04 Dose: 325 mg Documented by: Oxytocin/Sodium Chloride (Oxytocin 30 Unit In Ns 0.9% 500 Ml Premix) 30 unit in 500 mls @ 500 mls/hr IV TITRATE [facility] Last Admin: 04/01/21 11:21 Dose: 500 mls/hr Documented by: Tranexamic Acid 1,000 mg/ (Sodium Chloride) 110 mls @ 660 mls/hr IV ONETIME PRN PRN Reason: Bleeding Oxytocin/Sodium Chloride (Oxytocin 30 Unit In Ns 0.9% 500 Ml Premix) 30 unit in 500 mls @ 2 mls/hr IV TITRATE [facility]; Protocol Last Titration: 04/01/21 10:51 Dose: 999 munits/min, 999 mls/hr Documented by: Lactated Ringer's (Ringers, Lactated) 1,000 mls @ 150 mls/hr IV ASDIRECTED [facility] Last Admin: 04/01/21 14:36 Dose: 150 mls/hr Documented by: Ibuprofen (Ibuprofen 400 Mg Tab) 400 mg PO Q4H PRN PRN Reason: Pain (mild 1-3) Ibuprofen (Ibuprofen 800 Mg Tab) 800 mg PO Q6H PRN PRN Reason: Cramping Last Admin: 04/03/21 09:05 Dose: 800 mg Documented by: Lidocaine HCl (Lidocaine 1% 50 Ml Mdv) 50 ml INJECT ONETIME PRN PRN Reason: Laceration repair Methylergonovine Maleate (Methylergonovine 0.2 Mg/1 Ml Amp) 0.2 mg IM ASDIRECTED PRN PRN Reason: Post Hemorrhage Miscellaneous Medication (Phenylephrine Hcl In 0.9% Nacl 1 Mg/10 Ml Syringe) 0.1 mg IVPUSH Q1M PRN PRN Reason: Hypotension Misoprostol (Misoprostol 200 Mcg Tab) 200 mcg PO ONETIME PRN PRN Reason: Post Hemorrhage Misoprostol (Misoprostol 25 Mcg (1/4 Of 100 Mcg) Tab) 25 mcg VAG ONETIME PRN PRN Reason: Cervical Ripening Last Admin: 03/31/21 01:31 Dose: 25 mcg Documented by: Misoprostol (Misoprostol 25 Mcg (1/4 Of 100 Mcg) Tab) 25 mcg VAG Q4H PRN PRN Reason: Cervical Ripening Last Admin: 03/31/21 13:59 Dose: 25 mcg Documented by: Nalbuphine HCl (Nalbuphine 10 Mg/1 Ml Vial) 10 mg IVPUSH Q1H PRN PRN Reason: Pain (severe 7-10) Ondansetron HCl (Ondansetron 4 Mg/2 Ml Sdv) 4 mg IVPUSH Q4H PRN PRN Reason: Nausea/Vomiting Last Admin: 04/01/21 16:42 Dose: 4 mg Documented by: Oxycodone HCl (Oxycodone 5 Mg Tab) 5 mg PO Q2H PRN PRN Reason: Pain (severe 7-10) Ropivacaine (Ropivacaine/Pf 400 Mg/200 Ml [employer]) 400 mg EPIDUR ASDIRECTED [facility] Last Admin: 04/01/21 09:19 Dose: 400 mg Documented by: Sodium Chloride (Sodium Chloride 0.9% 10 Ml Syringe) 10 ml FLUSH ASDIRECTED PRN PRN Reason: Keep Vein Open Sodium Chloride (Sodium Chloride 0.9% 2.5 Ml Syringe) 2.5 ml FLUSH ASDIRECTED PRN PRN Reason: Keep Vein Open Sodium Chloride (Sodium Chloride 0.9% 20 Ml Sdv) 10 ml IV ASDIRECTED PRN PRN Reason: IV Use Sterile Water (Water For Irrigation,Sterile 1,000 Ml Container) 1,000 ml IRR ASDIRECTED PRN PRN Reason: delivery Terbutaline Sulfate (Terbutaline 1 Mg/Ml Sdv) 0.25 mg SUBCUT ASDIRECTED PRN PRN Reason: Tacysystole Witch Mary (Witch Mary Medicated Pads 40/Jar) 1 pad TOP ASDIRECTED PRN PRN Reason: comfort care Last Admin: 04/01/21 16:46 Dose: 1 container Documented by: Discontinued Medications Acetaminophen (Acetaminophen 500 Mg Tab) 1,000 mg PO ONETIME ONE Stop: 04/01/21 09:31 Last Admin: 04/01/21 09:50 Dose: 1,000 mg Documented by: Diphenhydramine HCl (Diphenhydramine 50 Mg/Ml Sdv) 12.5 mg IVPUSH ONETIME ONE Stop: 04/01/21 16:14 Last Admin: 04/01/21 16:44 Dose: 12.5 mg Documented by: Diphenhydramine HCl (Diphenhydramine 50 Mg/Ml Sdv) 12.5 mg IVPUSH ONETIME ONE Stop: 04/01/21 17:39 Last Admin: 04/01/21 18:08 Dose: 12.5 mg Documented by: Famotidine (Famotidine 20 Mg/2 Ml Sdv) 20 mg IVPUSH ONETIME ONE Stop: 04/01/21 13:39 Last Admin: 04/01/21 14:37 Dose: 20 mg Documented by: Hydroxyzine HCl (Hydroxyzine Hcl 25 Mg Tab) 50 mg PO Q6H STA Stop: 04/01/21 01:08 Last Admin: 04/01/21 01:45 Dose: Not Given Documented by: Ropivacaine (Naropin 0.2%) Confirm Administered Dose 200 mls @ as directed .ROUTE .STK-MED ONE Stop: 03/31/21 19:20 Last Admin: 04/01/21 02:39 Dose: Not Given Documented by: Ropivacaine (Naropin 0.2%) Confirm Administered Dose 200 mls @ as directed .ROUTE .STK-MED ONE Stop: 04/01/21 09:17 Clindamycin Phosphate 900 mg/ (Premix) 50 mls @ 100 mls/hr IV ONETIME ONE Stop: 04/01/21 12:31 Last Admin: 04/01/21 12:15 Dose: 100 mls/hr Documented by: Lidocaine/Epinephrine (Lidocaine 2% With Epinephrine 1:200,000 20 Ml Sdv) Confirm Administered Dose 20 ml .ROUTE .STK-MED ONE Stop: 04/01/21 11:56 Morphine Sulfate (Morphine Pf 10 Mg/10 Ml Sdv) Confirm Administered Dose 10 mg .ROUTE .STK-MED ONE Stop: 04/01/21 11:56 - Infant Interaction Disposition, : in Room with Family Interaction: Holding Infant Feeding: Breastfed ; Nursed Well Support Person: - Recovery Exam Fundal Tone: Firm Fundal Level: 1 Fingerbreadths Below Umbilicus Fundal Placement: Midline Lochia Amount: Scant Lochia Color: Rubra/Red Perineum Description: Intact, Minimal Bruising/Swelling Other Perinuem Description: repaired first degree perineal laceration cervical laceration Episiotomy/Laceration: None Bladder Status: Voiding Urinary Elimination: Voided - Exam General: Alert, Oriented, Cooperative, No Acute Distress HEENT: Pupils Equal, Pupils Reactive, EOMI Neck: Supple, Trachea Midline, No JVD Lungs: Normal Respiratory Effort GI/Abdominal Exam: Soft, Non-Tender, No Organomegaly, No Distention Extremities: Normal Inspection, Normal Range of Motion, Non-Tender, No Pedal Edema Skin: Warm, Dry, Intact Neurological: No New Focal Deficit Psy/Mental Status: Alert, Normal Affect, Normal Mood - Problem List Review Problem List Initiated/Reviewed/Updated: Yes - My Orders Last 24 Hours: My Active Orders 04/03/21 09:20 Ready for Discharge [RC] PER UNIT ROUTINE - Assessment Assessment:: 30 year old female PPD2 s/p with hemorrhage due to cervical laceration - Plan Plan:: Routine cares * Rh positive, rubella immune, GBS negative * Regular diet as tolerated * PO pain medications ordered PRN * Encourage ambulation and fluid intake * , nursing assistance PRN Anemia due to hemorrhage * Hgb 11.5 > 9.2 * Asymptomatic * Bleeding stable * PO iron ordered BID with meals Lower extremity numbness * Symptoms mostly resolved Dispo: stable. Anticipate discharge today. Reviewed care instructions
== END 2021-04-03 14:35 | disposition home or self-care (01) | DRG 768 ==
LOC: MW.OBCHECK 00:08 → MW.OB 00:10 → MW.OBCHECK 00:31 → OBSVTOIN 04-01 13:34 → MW.OB 04-01 17:00
PROVIDERS: ADMIT Obstetrics & Gynecology; ATTEND Obstetrics & Gynecology
PROC: 10E0XZZ Delivery of Products of Conception, External Approach (ICD-10-PCS; principal; 2021-04-01)
PROC: 0UQC0ZZ Repair Cervix, Open Approach (ICD-10-PCS; 2021-04-01)
PROC: 0KQM0ZZ Repair Perineum Muscle, Open Approach (ICD-10-PCS; 2021-04-01)
PROC: 3E0R3BZ Introduction of Anesthetic Agent into Spinal Canal, Percutaneous Approach (ICD-10-PCS; 2021-04-01)
PROC: 00HU33Z Insertion of Infusion Device into Spinal Canal, Percutaneous Approach (ICD-10-PCS; 2021-04-01)
DX: O26.62 Liver and biliary tract disorders in childbirth (principal); Z37.0 Single live birth; K83.1 Obstruction of bile duct; D62 Acute posthemorrhagic anemia; O71.3 Obstetric laceration of cervix; Z3A.37 37 weeks gestation of pregnancy; O99.02 Anemia complicating childbirth; O70.1 Second degree perineal laceration during delivery; Z20.822 Contact with and (suspected) exposure to COVID-19
CPT/HCPCS: 00940; 01967; 36415; 59025; 59409; 85014; 85018; 85025; 85027; 85384; 85610; 85730; 86592; 86803; 86850; 86900; 86901; 86920; 86921; 86922; A9270-GY; J1200; J2270; J2405; J2590; J2795; J3490; J7120; U0002